=== PATIENT | male | born 1950 | race African-American/Black ===

== ENCOUNTER 2021-06-11 18:30 | Observation (INO) | payer MEDICARE, OTHER ==
[2021-06-11] MEDS ORDERED: MORPHINE SULFATE 2 MG/ML SYRINGE IVP STA (19:37)
--- NOTE | 2021-06-11 19:40 | ED ---
GI Bleed HPI - General Chief complaint: GI Bleed Stated complaint: GI bleed Time Seen by Provider: 06/11/21 18:56 Source: EMS, old records reviewed Mode of arrival: EMS Limitations: no limitations, altered mental status - History of Present Illness Initial comments: 71 year-old male patient with history of CVA with aphasia presents to the emergency department for evaluation after having black stool. Patient is currently residing at [facility]. He has had 2-3 bowel movements containing black tarry stool over the last 3 hours. Patient is extremely aphasic but does provide some yes and no answers. Denies having any dizziness, abdominal pain, chest pain , or shortness of breath. He does currently take adult aspirin, according to the medical record sent with him he does not take any other blood thinning medications. Daughter is present states that he has had 3 falls over the last couple of days. He is reporting frontal headache. - Related Data Allergies Allergy/AdvReac Type Severity Reaction Status Date / Time No Known Allergies Allergy Verified 06/11/21 18:53 Review of Systems ROS Statement: Those systems with pertinent positive or pertinent negative responses have been documented in the HPI. ROS Other: All systems not noted in ROS Statement are negative. Past Medical History Past Medical History: Cancer, COPD, CVA/TIA, Hypertension Additional Past Medical History / Comment(s): anemia, UTI, metabolic encephalopathy, ETOH abuse, Acute Kidney failure, prostate CA, sepsis, seizure from ETOH withdrawal, left side weakness and dysphagia from stroke, History of Any Multi-Drug Resistant Organisms: None Reported Past Surgical History: Prostate Surgery Additional Past Surgical History / Comment(s): prostate biopsy,vocal cord polyp removal, HD catheter with removal Past Psychological History: Depression Smoking Status: Former smoker Past Alcohol Use History: Abuse Past Drug Use History: Marijuana General Exam Limitations: no limitations, altered mental status General appearance: alert, in no apparent distress, other (This well-developed, well-nourished adult male patient in no acute distress. Vital signs upon presentation are temperature 98.3F 4 pulse 97, respirations 16, blood pressure 103/82, pulse ox 97% on room air.) Eye exam: Present: normal appearance, PERRL, EOMI. Absent: scleral icterus, conjunctival injection, nystagmus, periorbital swelling ENT exam: Present: normal exam, normal oropharynx, mucous membranes moist Respiratory exam: Present: normal lung sounds bilaterally. Absent: respiratory distress, wheezes, rales, rhonchi, stridor Cardiovascular Exam: Present: regular rate, normal rhythm, normal heart sounds. Absent: systolic murmur, diastolic murmur, rubs, gallop, clicks GI/Abdominal exam: Present: soft, normal bowel sounds. Absent: distended, tenderness, guarding, rebound, rigid Neurological exam: Present: alert, oriented X3, CN II-XII intact Psychiatric exam: Present: normal affect, normal mood Skin exam: Present: warm, dry, intact, normal color. Absent: rash Course Vital Signs 06/11/21 18:42 Temperature 98.3 F Pulse Rate 97 Respiratory 16 Rate Blood Pressure 103/82 O2 Sat by Pulse 97 Oximetry Medical Decision Making - Medical Decision Making 71 year-old male patient presents for evaluation of 3 episodes of black stool today. BP is stable. Labs reviewed Hgb 10.9. BUN 55, Cr 1.60. Stool occult is positive. Does take aspirin daily. He will be admitted for serial hgb and for evaluation by GI. Protonix given. Patient and family agreeable with this plan. My attending is Dr. Portillo. - Lab Data Result diagrams: 06/11/21 19:04 06/11/21 19:04 Lab Results 06/11/21 06/11/21 06/11/21 Range/Units 19:04 19:04 19:04 WBC 8.2 (3.8-10.6) k/uL RBC 3.63 L (4.30-5.90) m/uL Hgb 10.9 L (13.0-17.5) gm/dL Hct 33.9 L (39.0-53.0) % MCV 93.2 (80.0-100.0) fL MCH 30.0 (25.0-35.0) pg MCHC 32.2 (31.0-37.0) g/dL RDW 14.8 (11.5-15.5) % Plt Count 241 (150-450) k/uL MPV 8.1 Neutrophils % 80 % Lymphocytes % 12 % Monocytes % 5 % Eosinophils % 1 % Basophils % 0 % Neutrophils # 6.6 (1.3-7.7) k/uL Lymphocytes # 1.0 (1.0-4.8) k/uL Monocytes # 0.4 (0-1.0) k/uL Eosinophils # 0.1 (0-0.7) k/uL Basophils # 0.0 (0-0.2) k/uL Hypochromasia Slight APTT 23.1 (22.0-30.0) sec Sodium 138 (137-145) mmol/L Potassium 5.4 H (3.5-5.1) mmol/L Chloride 105 (98-107) mmol/L Carbon Dioxide 22 (22-30) mmol/L Anion Gap 11 mmol/L BUN 55 H (9-20) mg/dL Creatinine 1.60 H (0.66-1.25) mg/dL Est GFR (CKD-EPI)AfAm 50 (>60 ml/min/1.73 sqM) Est GFR (CKD-EPI)NonAf 44 (>60 ml/min/1.73 sqM) Glucose 113 H (74-99) mg/dL Plasma Lactic Acid Reyes (0.7-2.0) mmol/L Calcium 9.9 (8.4-10.2) mg/dL Total Bilirubin 0.3 (0.2-1.3) mg/dL AST 28 (17-59) U/L ALT 25 (4-49) U/L Alkaline Phosphatase 90 (38-126) U/L Troponin I (0.000-0.034) ng/mL Total Protein 7.3 (6.3-8.2) g/dL Albumin 3.7 (3.5-5.0) g/dL Stool Occult Blood (Negative) 06/11/21 06/11/21 06/11/21 Range/Units 19:04 19:05 19:05 WBC (3.8-10.6) k/uL RBC (4.30-5.90) m/uL Hgb (13.0-17.5) gm/dL Hct (39.0-53.0) % MCV (80.0-100.0) fL MCH (25.0-35.0) pg MCHC (31.0-37.0) g/dL RDW (11.5-15.5) % Plt Count (150-450) k/uL MPV Neutrophils % % Lymphocytes % % Monocytes % % Eosinophils % % Basophils % % Neutrophils # (1.3-7.7) k/uL Lymphocytes # (1.0-4.8) k/uL Monocytes # (0-1.0) k/uL Eosinophils # (0-0.7) k/uL Basophils # (0-0.2) k/uL Hypochromasia APTT (22.0-30.0) sec Sodium (137-145) mmol/L Potassium (3.5-5.1) mmol/L Chloride (98-107) mmol/L Carbon Dioxide (22-30) mmol/L Anion Gap mmol/L BUN (9-20) mg/dL Creatinine (0.66-1.25) mg/dL Est GFR (CKD-EPI)AfAm (>60 ml/min/1.73 sqM) Est GFR (CKD-EPI)NonAf (>60 ml/min/1.73 sqM) Glucose (74-99) mg/dL Plasma Lactic Acid Reyes 1.3 (0.7-2.0) mmol/L Calcium (8.4-10.2) mg/dL Total Bilirubin (0.2-1.3) mg/dL AST (17-59) U/L ALT (4-49) U/L Alkaline Phosphatase (38-126) U/L Troponin I <0.012 (0.000-0.034) ng/mL Total Protein (6.3-8.2) g/dL Albumin (3.5-5.0) g/dL Stool Occult Blood Positive (Negative) - EKG Data -: EKG Interpreted by Or EKG Comments: EKG obtained at 1840 shows sinus rhythm with marked sinus arrhythmia, ventricular rate 94, WY interval 138, QR protestant 78, QT 338, QTC 422. No evidence of ST elevation or depression - Radiology Data Radiology results: report reviewed, image reviewed CT brain and C-spine without contrast is obtained. Report is reviewed in its entirety. Impression by Dr. Resendiz shows cerebral atrophy. No acute intracranial abnormality. Spondylotic changes in the cervical spine. No frac ture. Disposition Clinical Impression: Upper GI bleed Disposition: ADMITTED IP TO THIS [facility] Condition: Serious Referrals: Edgar Hansen DO [Primary Care Provider] - 1-2 days Decision to Admit Reason: Admit from EC Decision Date: 06/11/21 Decision Time: 21:18
[2021-06-11 19:49] LABS: Basophils % (A) 0 %; Eosinophils # (A) 0.1 k/uL (0-0.7); Eosinophils % (A) 1 %; HCT 33.9 % (39.0-53.0); HGB 10.9 gm/dL (13.0-17.5); Hypochromasia Slight; Lymphocytes % (A) 12 %; MCHC 32.2 g/dL (31.0-37.0); MCV 93.2 fL (80.0-100.0); Mean Platelet Volume 8.1; Monocytes # (A) 0.4 k/uL (0-1.0); Monocytes % (A) 5 %; Neutrophils # (A) 6.6 k/uL (1.3-7.7); Neutrophils % (A) 80 %; Platelet Count 241 k/uL (150-450); RBC 3.63 m/uL (4.30-5.90); RDW 14.8 % (11.5-15.5); WBC 8.2 k/uL (3.8-10.6)
[2021-06-11 19:58] LABS: Albumin 3.7 g/dL (3.5-5.0); Calcium 9.9 mg/dL (8.4-10.2); Potassium 5.4 mmol/L (3.5-5.1); Total Bilirubin 0.3 mg/dL (0.2-1.3); Total Protein 7.3 g/dL (6.3-8.2)
--- NOTE | 2021-06-11 20:10 | CT ---
EXAMINATION TYPE: CT brain wilmer wo con DATE OF EXAM: 06/11/2021 COMPARISON: None HISTORY: ams CT DLP: 1325.1 mGycm Automated exposure control for dose reduction was used. There is cerebral cortical atrophy. There is no mass effect nor midline shift. There is no sign of in tracranial hemorrhage. Calvarium is intact. Skull base is intact. Cervical vertebra have normal alignment. There is degenerative disc space narrowing throughout the ce rvical spine from C3 to T1. There is spurring of the endplates. Prevertebral soft tissues are intact. Facet joints are intact. There is some osteosclerosis in the cervical vertebra. This could relate to renal failure. IMPRESSION: Cerebral atrophy. No acute intracranial abnormality. Spondylotic changes in the cervical spine. No fracture.
[2021-06-11] MEDS ORDERED: MORPHINE SULFATE 2 MG/ML SYRINGE IV PRN (21:11)
[2021-06-11] MEDS ORDERED: NALOXONE 0.4 MG/ML 1 ML VIAL IV PRN (21:11)
[2021-06-11] MEDS ORDERED: PANTOPRAZOLE 40 MG/10 ML VIAL IVP STA (21:12)
[2021-06-12 00:09] LABS: Basophils % (A) 0 %; Eosinophils # (A) 0.1 k/uL (0-0.7); Eosinophils % (A) 1 %; HCT 30.6 % (39.0-53.0); Lymphocytes # (A) 1.5 k/uL (1.0-4.8); Lymphocytes % (A) 16 %; MCH 30.4 pg (25.0-35.0); MCHC 32.8 g/dL (31.0-37.0); MCV 92.6 fL (80.0-100.0); Mean Platelet Volume 7.8; Monocytes # (A) 0.4 k/uL (0-1.0); Monocytes % (A) 4 %; Neutrophils % (A) 77 %; Platelet Count 288 k/uL (150-450); RDW 15.2 % (11.5-15.5); WBC 9.1 k/uL (3.8-10.6)
[2021-06-12 03:09] LABS: Basophils % (A) 1 %; Eosinophils # (A) 0.1 k/uL (0-0.7); Eosinophils % (A) 1 %; HCT 29.7 % (39.0-53.0); HGB 9.8 gm/dL (13.0-17.5); Lymphocytes # (A) 1.5 k/uL (1.0-4.8); Lymphocytes % (A) 19 %; MCH 30.4 pg (25.0-35.0); Mean Platelet Volume 7.4; Monocytes # (A) 0.5 k/uL (0-1.0); Monocytes % (A) 7 %; Neutrophils # (A) 5.4 k/uL (1.3-7.7); Neutrophils % (A) 70 %; Platelet Count 247 k/uL (150-450); RBC 3.23 m/uL (4.30-5.90); RDW 15.3 % (11.5-15.5); WBC 7.6 k/uL (3.8-10.6)
[2021-06-12 07:52] LABS: Basophils # (A) 0.1 k/uL (0-0.2); Basophils % (A) 1 %; Eosinophils # (A) 0.2 k/uL (0-0.7); Eosinophils % (A) 2 %; HGB 9.7 gm/dL (13.0-17.5); Lymphocytes # (A) 1.6 k/uL (1.0-4.8); Lymphocytes % (A) 23 %; MCH 29.9 pg (25.0-35.0); MCHC 32.4 g/dL (31.0-37.0); MCV 92.2 fL (80.0-100.0); Mean Platelet Volume 7.9; Monocytes # (A) 0.5 k/uL (0-1.0); Monocytes % (A) 7 %; Neutrophils # (A) 4.6 k/uL (1.3-7.7); Neutrophils % (A) 65 %; Platelet Count 243 k/uL (150-450); RBC 3.26 m/uL (4.30-5.90); RDW 14.8 % (11.5-15.5); WBC 7.1 k/uL (3.8-10.6)
[2021-06-12] MEDS ORDERED: PANTOPRAZOLE 40 MG/10 ML VIAL IVP SCH (09:00)
[2021-06-12] MEDS ORDERED: ACETAMINOPHEN TAB 325 MG TAB PO PRN (10:41)
[2021-06-12 12:37] LABS: Basophils % (A) 1 %; Eosinophils # (A) 0.2 k/uL (0-0.7); Eosinophils % (A) 2 %; HCT 30.7 % (39.0-53.0); HGB 9.9 gm/dL (13.0-17.5); Lymphocytes # (A) 1.5 k/uL (1.0-4.8); Lymphocytes % (A) 22 %; MCH 30.6 pg (25.0-35.0); MCHC 32.4 g/dL (31.0-37.0); MCV 94.3 fL (80.0-100.0); Mean Platelet Volume 8.1; Monocytes # (A) 0.5 k/uL (0-1.0); Monocytes % (A) 7 %; Neutrophils # (A) 4.6 k/uL (1.3-7.7); Neutrophils % (A) 66 %; Platelet Count 270 k/uL (150-450); RBC 3.25 m/uL (4.30-5.90); RDW 15.6 % (11.5-15.5)
[2021-06-12 13:53] VITALS: BMI 16.7
[2021-06-12] MEDS ORDERED: PROPOFOL 10 MG/ML 20 ML VIAL IV ONE (14:37)
[2021-06-12] MEDS ORDERED: LIDOCAINE 1% INJ 10MG/ML (20 ML MDV) ONE (14:37)
[2021-06-12] MEDS ORDERED: SODIUM CHLORIDE 0.9% 500 ML 500 ML IV ONE ×2 (14:40)
--- NOTE | 2021-06-12 14:50 | P.PCN ---
Date of Procedure: 06/12/21 Procedure(s) Performed: BRIEF HISTORY: Patient is a 71-year-old, pleasant, -[place] male admitted hospital with recurrent episodes. Hemoglobin dropped from 10-9 g/dL. He scheduled for an upper endoscopy to evaluate further. Issue with history of CVA with expressive aphasia . PROCEDURE PERFORMED: Esophagogastroduodenoscopy with biopsy . PREOPERATIVE DIAGNOSIS: Melena of 1 day duration. IV sedation per anesthesia. PROCEDURE: After informed consent was obtained, the patient was brought into the endoscopy unit. IV sedation was administered by Anesthesia under continuous monitoring. Initially the Olympus GIF-140 video endoscope was inserted into the mouth. Esophagus intubated without any difficulty. It was gradually advanced into the stomach and duodenum and carefully examined. The bulb and the second part of the duodenum appeared normal. there was a 1 cm clean-based pyloric channel ulcer with no active bleeding. Biopsies were done from the margin of the ulcer. The scope at this airam withdrawn to the stomach, adequately insufflated with air, and upon careful examination, mucosa of the antrum, body, had mild diffuse gastritis. The cardia and the fundus appeared normal. The scope was then withdrawn into the esophagus. The GE junction was located at 39 cm from the incisors. The esophagus appeared normal. There were no erosions or ulcerations seen and the patient tolerated the procedure well. IMPRESSION: 1. 1 cm clean-based pyloric channel ulcer status post biopsy. No evidence of active bleeding 2. Mild diffuse gastritis in the distal body and antrum of the stomach. RECOMMENDATIONS: The findings of this examination were discussed with the patientas well as his family. Await biopsy results. Continue Protonix 40 mg daily. Advance diet as tolerated.
[2021-06-12] MEDS: amLODIPine 5 MG TAB PO SCH (15:26)
[2021-06-12] MEDS: FOLIC ACID 1 MG TAB PO SCH (15:26)
[2021-06-12] MEDS: TAMSULOSIN 0.4 MG CAP.ER.24H PO SCH (15:26)
[2021-06-12] MEDS: SODIUM CHLORIDE 0.9% 1,000 ML IV SCH ×2 (15:29→23:59)
[2021-06-12] MEDS: NYSTATIN 100,000 UNIT/ML SUSP 500,000 UNIT/5 ML CUP PO SCH ×3 (15:30→22:02)
--- NOTE | 2021-06-12 16:27 | P.HPIM ---
History of Present Illness H&P Date: 06/12/21 Chief Complaint: Dark stools History of presenting complaint: This is a 71-year-old patient was a resident of [facility], presenting for black stools. Before of Dr. Hansen. Liver span of last few hours he had 2 or 3 bowel movements at the [facility]. Patient is aphasic. But able to follow commands. Patient appears to be bed bound. Is on aspirin. Denies any abdominal pain. Difficult up in any of the history. GI was consulted. Review of systems cannot be obtained because patient is aphasic Past medical history to include: COPD, stroke, hypertension, history of alcohol abuse, prostate cancer, some left-sided weakness, dysphagia and dysarthria from stroke Social history: Previous smoker. Currently at resident of [facility]. Apparently non- ambulatory Family history: Patient cannot tell Physical examination: VITAL SIGNS: 98.2, 100, 16, 98/65, 100% room air GENERAL: BMI 16.7, reclining in bed, tired. EYES: Pupils equal. Conjunctiva palel. HEENT: External appearance of nose and ears normal, oral cavity grossly normal. NECK: JVD not raised; masses not palpable. HEART: First and second heart sounds are normal; no edema. LUNGS: Respiratory rate normal; decreased breath sounds. ABDOMEN: Soft, nontender, liver spleen not palpable, no masses palpable. PSYCH: Unable to assess because of aphasial. NEUROLOGICAL: Cranial nerves grossly intact; no facial asymmetry, power and sensation grossly intact. LYMPHATICS: No lymph nodes palpable in the axilla and neck INVESTIGATIONS, reviewed in the clinical context: White count 8.2 hemoglobin 10.9 platelets 241 potassium 5.4 BUN 55 creatinine 1.60 EKG tracing personally reviewed by sc-normal sinus rhythm, rate 94 Computed tomography scan of the brain: Celebrex atrophy Assessment and plan: -Acute GI bleed, patient presented with dark stools. Does take aspirin. GI consult with a view to endoscopy -Normocytic anemia from acute GI bleed. Follow H&H -Chronic aphasia from prior stroke -COPD in a previous smoker -Essential hypertension Norvasc 5 mg daily -BPH Flomax 0.4 mg daily -Hyperkalemia in the setting of renal failure Repeat labs -Renal failure. Acute versus chronic. IV fluids. Repeat labs in the morning. Renal ultrasound. There is no family member present. EGD pending. PPI. Renal ultrasound. IV fluids. Repeat labs in the morning. Hold aspirin Aspirin was discontinued. Put on PPI. GI consulted with a view to endoscopy. Past Medical History Past Medical History: Cancer, COPD, CVA/TIA, Hypertension Additional Past Medical History / Comment(s): anemia, UTI, metabolic encephalopathy, ETOH abuse, Acute Kidney failure, prostate CA, sepsis, seizure from ETOH withdrawal, left side weakness and dysphagia from stroke, History of Any Multi-Drug Resistant Organisms: None Reported Past Surgical History: Prostate Surgery Additional Past Surgical History / Comment(s): prostate biopsy,vocal cord polyp removal, HD catheter with removal Past Psychological History: Depression Smoking Status: Former smoker Past Alcohol Use History: Abuse Past Drug Use History: Marijuana Medications and Allergies Home Medications Medication Instructions Recorded Confirmed Type Acetaminophen Tab [Tylenol] 650 mg PO Q4H PRN 06/11/21 06/11/21 History Aspirin EC [Ecotrin] 325 mg PO DAILY 06/11/21 06/11/21 History Atorvastatin [Lipitor] 40 mg PO HS 06/11/21 06/11/21 History Ferrous Sulfate [Feosol] 325 mg PO DAILY 06/11/21 06/11/21 History Folic Acid 1 mg PO DAILY 06/11/21 06/11/21 History Levofloxacin [Levaquin] 500 mg PO HS@2000 06/11/21 06/11/21 History Nystatin 100,000 Unit/ml Susp 500,000 unit PO QID 06/11/21 06/11/21 History [Mycostatin Oral Susp] Tamsulosin [Flomax] 0.4 mg PO DAILY 06/11/21 06/11/21 History amLODIPine [Norvasc] 5 mg PO DAILY 06/11/21 06/11/21 History Allergies Allergy/AdvReac Type Severity Reaction Status Date / Time No Known Allergies Allergy Verified 06/11/21 22:34 Physical Exam Vitals: Vital Signs Temp Pulse Pulse Resp BP BP Pulse Ox 06/12/21 05:00 96.9 F L 95 16 98/65 100 06/11/21 23:05 98.2 F 100 16 94/63 100 06/11/21 22:20 96 18 106/95 97 06/11/21 18:42 98.3 F 97 16 103/82 97 Intake and Output 06/11/21 06/12/21 06/12/21 22:59 06:59 14:59 Intake Total 150 Output Total 75 Balance 150 -75 Intake: Oral 150 Output: Urine 75 Other: # Voids 1 Weight 54.431 kg Results CBC & Chem 7: 06/12/21 11:03 06/11/21 19:04 Labs: Abnormal Lab Results - Last 24 Hours (Table) 06/11/21 06/11/21 06/11/21 Range/Units 19:04 19:04 23:28 RBC 3.63 L 3.30 L (4.30-5.90) m/uL Hgb 10.9 L 10.0 L (13.0-17.5) gm/dL Hct 33.9 L 30.6 L (39.0-53.0) % Potassium 5.4 H (3.5-5.1) mmol/L BUN 55 H (9-20) mg/dL Creatinine 1.60 H (0.66-1.25) mg/dL Glucose 113 H (74-99) mg/dL 06/12/21 06/12/21 Range/Units 02:17 07:15 RBC 3.23 L 3.26 L (4.30-5.90) m/uL Hgb 9.8 L 9.7 L (13.0-17.5) gm/dL Hct 29.7 L 30.0 L (39.0-53.0) % Potassium (3.5-5.1) mmol/L BUN (9-20) mg/dL Creatinine (0.66-1.25) mg/dL Glucose (74-99) mg/dL
[2021-06-12] MEDS: PANTOPRAZOLE 40 MG TABLET PO SCH (17:53)
--- NOTE | 2021-06-12 20:05 | CONS ---
CONSULTATION DATE OF DICTATION: 06/12/2021 REASON FOR CONSULTATION: GI bleed. HISTORY OF PRESENT ILLNESS: The patient is a 71-year-old -[place] male with a history of CVA and aphasia who is presently a resident of a group home and was transferred after having an episode of black tarry stools. He currently resides at [facility]. Since being in the hospital he has not had any further episodes of bleeding. Patient is extremely aphasic, and most of the history was obtained from the patient's chart. He, however, nods his head to answer questions and he denies any abdominal pain. No nausea, no vomiting. In the ER, he was noted to have a hemoglobin of 10.9 g/dL and elevated BUN at 55. PAST MEDICAL HISTORY: His past medical history is significant for CVA with aphasia, hypertension, hyperlipidemia, COPD, anemia, history of prostate cancer, seizure disorder, and left- sided weakness. PAST SURGICAL HISTORY: Prostate surgery. MEDICATIONS: Medications at home include nystatin, Tylenol, Levaquin, folic acid, Flomax, Feosol, Lipitor, Ecotrin and . ALLERGIES: NONE. SOCIAL HISTORY: No smoking. No alcohol use. REVIEW OF SYSTEMS: Review of systems could not be obtained, as patient is aphasic. FAMILY HISTORY: Unremarkable. PHYSICAL EXAMINATION: He appears comfortable. No apparent distress. VITAL SIGNS: Stable. Blood pressure 95/65, pulse rate 85, temperature . HEENT EXAMINATION: Unremarkable. Conjunctivae pink. Sclerae anicteric. Oral cavity no lesions. NECK: No JVD or lymph node enlargement. CHEST: Clear to auscultation. HEART: Regular rate and rhythm. ABDOMEN: Soft. Mild tenderness in the epigastric area. Bowel sounds are positive. No organomegaly. EXTREMITIES: No pedal edema. SKIN: No rashes. NEURO: He is alert and oriented x3. No focal deficits. LABS: Labs at the time of admission to the hospital were WBC 8.2, hemoglobin 10.9, platelets normal. BUN 55, creatinine 1.6. Today hemoglobin is 10.9 g/dL. Stool Hemoccult is positive. IMPRESSION: 1. Black tarry stools x1 yesterday. Hemoglobin stable at 10.9 g/dL. This morning it is down to 9.9. The patient had no further episodes of black tarry stools since being in the hospital. Rule out upper GI source of bleeding. 2. Elevated BUN and creatinine; possible chronic kidney disease. 3. History of cerebrovascular accident in the past with left-sided weakness and aphasia. 4. History of hypertension. RECOMMENDATIONS: 1. Continue with Protonix 40 mg daily. 2. Monitor CBC daily. 3. Will proceed with upper endoscopy today. Further recommendations will follow. Thank you for this consultation. MMODL / IJN: [id number] /
[2021-06-12] MEDS ORDERED: ATORVASTATIN 40 MG TAB PO SCH (21:00)
--- NOTE | 2021-06-13 01:38 | US ---
EXAMINATION TYPE: US kidneys/renal and bladder DATE OF EXAM: 06/12/2021 COMPARISON: NONE CLINICAL HISTORY: assess for CKD. EXAM MEASUREMENTS: Right Kidney: 10.8 x 4.0 x 4.0 cm Left Kidney: 9.7 x 4.7 x 4.3 cm Right Kidney: Mild hydronephrosis. Cystic area visualized measuring 1.1 cm Left Kidney: No hydronephrosis. Cyst measuring 2.3 x 1.8 x 1.9 cm Bladder: Not visualized IMPRESSION: There are bilateral simple renal cortical cysts. Right renal hydronephrosis. No evidence of a solid r enal mass. Urinary bladder not evaluated. Bladder not visualized.
[2021-06-13 06:41] LABS: African American GFR (CKD) 56 (>60 ml/min/1.73 sqM); Anion Gap 7 mmol/L; Blood Urea Nitrogen 41 mg/dL (9-20); Calcium 9.4 mg/dL (8.4-10.2); Carbon Dioxide 25 mmol/L (22-30); Chloride 108 mmol/L (98-107); Glucose 98 mg/dL (74-99); Non-African American GFR(CKD) 49 (>60 ml/min/1.73 sqM); Potassium 4.2 mmol/L (3.5-5.1); Sodium 140 mmol/L (137-145)
[2021-06-13] MEDS: SODIUM CHLORIDE 0.9% 1,000 ML IV SCH ×3 (07:21→17:57)
[2021-06-13] MEDS: amLODIPine 5 MG TAB PO SCH (08:28)
[2021-06-13] MEDS: FOLIC ACID 1 MG TAB PO SCH (08:28)
[2021-06-13] MEDS: NYSTATIN 100,000 UNIT/ML SUSP 500,000 UNIT/5 ML CUP PO SCH ×3 (08:28→17:57)
[2021-06-13] MEDS: PANTOPRAZOLE 40 MG TABLET PO SCH ×2 (08:28→17:57)
[2021-06-13] MEDS: TAMSULOSIN 0.4 MG CAP.ER.24H PO SCH (08:28)
[2021-06-13 10:59] LABS: HCT 28.1 % (39.0-53.0); HGB 9.3 gm/dL (13.0-17.5); Hypochromasia Slight; MCHC 33.1 g/dL (31.0-37.0); MCV 93.8 fL (80.0-100.0); Mean Platelet Volume 8.5; Platelet Count 222 k/uL (150-450); RDW 14.5 % (11.5-15.5); WBC 5.7 k/uL (3.8-10.6)
[2021-06-13 11:58] VITALS: BP 115/73; PULSE 71; RESP 17; TEMP 97.8
--- NOTE | 2021-06-13 12:13 | P.PN ---
Subjective Progress Note Date: 06/13/21 Principal diagnosis: Melena, GI bleed 71-year-old -[place] male with a history of CVA and aphasia who presently is a resident at [facility] was transferred after having an episode of black tarry stools. Yesterday he underwent an upper endoscopy that revealed a 1 cm clean based pyloric channel ulcer status post biopsy. No evidence of active bleeding. Mild diffuse gastritis in the distal body and antrum of the stomach. Patient is to continue Protonix 40 mg daily. The patient had no further bleeding since he has been hospitalized. He denies any nausea, vomiting, or abdominal pain. Hemoglobin is stable at 9.3. Objective - Vital Signs Vital signs: Vital Signs Temp 97.3 F L 06/13/21 05:00 Pulse 69 06/13/21 08:31 Resp 16 06/13/21 05:00 BP 111/71 06/13/21 08:31 Pulse Ox 100 06/13/21 05:00 Intake & Output 06/12/21 06/13/21 06/13/21 18:59 06:59 18:59 Intake Total 100 1560 Output Total 375 200 Balance -275 1360 Weight 54.431 kg Intake: IV 100 Intake, IV Titration 1560 Amount Sodium Chloride 0.9% 1, 1560 000 ml @ 130 mls/hr IV . Q7H42M [facility] Rx#:[id number] Output: Urine 375 200 Other: Voiding Method Urinal - Exam General appearance: The patient is alert, oriented, appears in no acute distress. HET: Head is normocephalic and atraumatic. Conjunctiva pink. Sclera anicteric. Poor dentation. Neck: Supple without lymphadenopathy. Abdomen: Soft, nontender, nondistended with bowel sounds. No guarding or rigidity. Extremities: Normal skin color and turgor. No pedal edema Skin: No rashes, no jaundice Neurological: Aphasia. Alert and oriented 3. - Labs CBC & Chem 7: 06/13/21 05:48 06/13/21 05:48 Labs: Abnormal Lab Results - Last 24 Hours (Table) 06/12/21 06/13/21 Range/Units 11:03 05:48 RBC 3.25 L (4.30-5.90) m/uL Hgb 9.9 L (13.0-17.5) gm/dL Hct 30.7 L (39.0-53.0) % RDW 15.6 H (11.5-15.5) % Chloride 108 H (98-107) mmol/L BUN 41 H (9-20) mg/dL Creatinine 1.45 H (0.66-1.25) mg/dL Assessment and Plan (1) Melena Narrative/Plan: 71-year-old male who was sent to the emergency department for further evaluation for reported black tarry stool. Patient is a resident of [facility] and was sent in with reported black stool. On admission he had a hemoglobin of 10.9. He's had no further episodes of black stool since being hospitalized. Yesterday he underwent an EGD that showed a 1 cm clean based pyloric channel ulcer status post biopsy. No evidence of active bleeding. Mild diffuse gastritis in the distal body and antrum of the stomach. He is to continue Protonix 40 mg daily. He is to call the office to follow-up with biopsy results. Current Visit: Yes Status: Acute Code(s): K92.1 - MELENA SNOMED Code(s): 7956951 Plan: 1. Continue symptomatic and supportive care 2. Patient is status post EGD 3. Continue Protonix 40 mg daily 4. Patient is cleared by gastroenterology for discharge. Patient and his family were instructed to call the office for biopsy results. Thank you for allowing us to participate in the care of the patient, the GI service will sign off, gastroenterology will not be available at the hospital this weekend and if further evaluation by gastroenterology is required the patient will need transfer as per the primary team's discretion. Dr. Rito Bates I agree with the dictator's note, documented as a scribe by Gaviota Willis.
--- NOTE | 2021-06-13 14:07 | P.DS ---
Providers Date of admission: 06/11/21 21:45 Expected date of discharge: 06/13/21 Attending physician: Elia Ng Consults: 06/11/21 21:11 Consult Physician Routine Consulting Provider: Елена Bates Consult Reason/Comments: Melena Do you want consulting provider notified?: Yes Primary care physician: [facility] Course: Chief Complaint: Dark stools History of presenting complaint: This is a 71-year-old patient was a resident of [facility], presenting for black stools. Followed by Dr. Hansen. Liver span of last few hours he had 2 or 3 bowel movements at the [facility]. Patient is aphasic. But able to follow commands. Patient appears to be bed bound. Is on aspirin. Denies any abdominal pain. Difficult up in any of the history. GI was consulted. June 13: EGD yesterday showed 1 cm clean-based pyloric channel ulcer. Biopsy done. No active bleeding noted. Mild diffuse gastritis. Continue PPI. Cleared by GI for discharge. Patient will resume aspirin 81 mg after 5 days. Consultation: Dr. Rito Bates from GI Past medical history to include: COPD, stroke, hypertension, history of alcohol abuse, prostate cancer, some l eft-sided weakness, dysphagia and dysarthria from stroke Social history: Previous smoker. Currently at resident of [facility]. Apparently non- ambulatory Family history: Patient cannot tell Physical examination: VITAL SIGNS: 97.8, 71, 17, 150/73, 98% room air GENERAL: BMI 16.7, reclining in bed, tired. EYES: Pupils equal. Conjunctiva pale. HEENT: External appearance of nose and ears normal, oral cavity grossly normal. NECK: JVD not raised; masses not palpable. HEART: First and second heart sounds are normal; no edema. LUNGS: Respiratory rate normal; decreased breath sounds. ABDOMEN: Soft, nontender, liver spleen not palpable, no masses palpable. PSYCH: Unable to assess because of aphasial NEURO: Follows commands INVESTIGATIONS, reviewed in the clinical context: June 13: Hemoglobin 9.3 creatinine 1.45 : Bilateral Simple Renal Cortical Cysts. White count 8.2 hemoglobin 10.9 platelets 241 potassium 5.4 BUN 55 creatinine 1.60 EKG tracing personally reviewed by me-normal sinus rhythm, rate 94 Computed tomography scan of the brain: Celebrex atrophy Assessment and plan: -Acute GI bleed, from gastric ulcer, secondary to aspirin Placed on PPI. -Normocytic anemia from acute GI bleed. Follow H&H -Chronic aphasia from prior stroke -COPD in a previous smoker -Essential hypertension Norvasc 5 mg daily -BPH Flomax 0.4 mg daily -Hyperkalemia in the setting of renal failure: Corrected Repeat labs -Possible CK D, stage III likely nephrosclerosis Follow outpatient. Disposition: [facility] Labs: CBC, BMP 5 days Plan - Discharge Summary Discharge Rx Participant: No New Discharge Prescriptions: New Aspirin 81 mg PO DAILY #1 tab Pantoprazole [Protonix] 40 mg PO AC-BID tablet. Continue Acetaminophen Tab [Tylenol] 650 mg PO Q4H PRN PRN Reason: Fever And/ Or Pain Folic Acid 1 mg PO DAILY Tamsulosin [Flomax] 0.4 mg PO DAILY Atorvastatin [Lipitor] 40 mg PO HS amLODIPine [Norvasc] 5 mg PO DAILY Nystatin 100,000 Unit/ml Susp [Mycostatin Oral Susp] 500,000 unit PO QID Ferrous Sulfate [Iron (65 MG Elemental)] 325 mg PO DAILY Discontinued Aspirin EC [Ecotrin] 325 mg PO DAILY Levofloxacin [Levaquin] 500 mg PO HS@2000 Discharge Medication List Acetaminophen Tab [Tylenol] 650 mg PO Q4H PRN 06/11/21 [History] Atorvastatin [Lipitor] 40 mg PO HS 06/11/21 [History] Ferrous Sulfate [Iron (65 MG Elemental)] 325 mg PO DAILY 06/11/21 [History] Folic Acid 1 mg PO DAILY 06/11/21 [History] Nystatin 100,000 Unit/ml Susp [Mycostatin Oral Susp] 500,000 unit PO QID 06/11/21 [History] Tamsulosin [Flomax] 0.4 mg PO DAILY 06/11/21 [History] amLODIPine [Norvasc] 5 mg PO DAILY 06/11/21 [History] Aspirin 81 mg PO DAILY #1 tab 06/13/21 [Rx] Pantoprazole [Protonix] 40 mg PO AC-BID tablet. 06/13/21 [Rx] Follow up Appointment(s)/Referral(s): Edgar Hansen DO [Primary Care Provider] - 1-2 days Елена Bates MD [STAFF PHYSICIAN] - As Needed (Call for biopsy results) Activity/Diet/Wound Care/Special Instructions: start aspirin in 5 days
== END 2021-06-13 19:34 ==
LOC: EC 18:30 → 5NMEDONC 21:45
PROVIDERS: ADMIT Hospitalist; ATTEND Hospitalist
DX: K25.4 Chronic or unspecified gastric ulcer with hemorrhage (principal); D62 Acute posthemorrhagic anemia; K29.51 Unspecified chronic gastritis with bleeding; I69.320 Aphasia following cerebral infarction; I10 Essential (primary) hypertension; E87.5 Hyperkalemia; N17.9 Acute kidney failure, unspecified; I69.354 Hemiplegia and hemiparesis following cerebral infarction affecting left non-dominant side; I69.391 Dysphagia following cerebral infarction; J44.9 Chronic obstructive pulmonary disease, unspecified; M85.88 Other specified disorders of bone density and structure, other site; N40.0 Benign prostatic hyperplasia without lower urinary tract symptoms; E78.5 Hyperlipidemia, unspecified; G40.909 Epilepsy, unspecified, not intractable, without status epilepticus; F10.11 Alcohol abuse, in remission; R51.9 Headache, unspecified; F32.9 Major depressive disorder, single episode, unspecified; Z79.82 Long term (current) use of aspirin; Z79.899 Other long term (current) drug therapy; Z85.46 Personal history of malignant neoplasm of prostate; Z87.891 Personal history of nicotine dependence; Z86.19 Personal history of other infectious and parasitic diseases; Z87.440 Personal history of urinary (tract) infections; Z98.890 Other specified postprocedural states
CPT/HCPCS: 96376; 96374; 96375; 99285; 36415; 93005; 97162; 97535; 97166; 88305; 80053; 80048; 83605; 84484; 85025 ×2; 85027; 85730; 82272; 76770; 72125; 70450; 43239; G0378 ×3; J2001; J2270; J2704; C9113 ×2

== ENCOUNTER → 2021-06-24 | Outpatient (CLI) | payer MEDICARE, OTHER ==
--- NOTE | 2021-06-24 11:57 | FL ---
Modified barium swallow. HISTORY: Dysphagia. Modified barium swallow was performed with the department of speech pathology. The patient was prese nted with various consistencies of barium. There is severe oral dysphagia noted with markedly delayed oropharyngeal phase. There is no evidence for aspiration or penetration. Full report is to follow from the department of speech pathology. Impression: As above
== END | disposition home or self-care (01) ==
LOC: RADFLMAIN 11:12
PROVIDERS: ATTEND Family Medicine
DX: R13.10 Dysphagia, unspecified (principal)
CPT/HCPCS: 74230

== ENCOUNTER 2021-07-09 14:08 | Observation (INO) | payer MEDICARE, OTHER ==
[2021-07-09] MEDS ORDERED: SODIUM CHLORIDE 0.9% 1,000 ML IV STA (14:17)
--- NOTE | 2021-07-09 14:26 | ED ---
General Adult HPI - General Chief complaint: Syncope Stated complaint: syncope Time Seen by Provider: 07/09/21 14:15 Source: patient, family, EMS, RN notes reviewed, old records reviewed Mode of arrival: EMS Limitations: language barrier - History of Present Illness Initial comments: This is a 71-year-old male who presents emergency Department because he was unresponsive for approximately 30 seconds. Patient is somewhat expressive aphasia from previous stroke he denies any pain he denies any problems breathing he denies any recent nausea vomiting or diarrhea. Patient states he hasn't been eating or drinking well. According to EMS he is pressure was low on the got there but he was able to answer or questions and at his baseline at that time. Patient denies any headache patient denies any new weakness. Patient denies any chest pain palpitations or difficulty breathing or abdominal pain. - Related Data Home Medications Medication Instructions Recorded Confirmed Folic Acid 1 mg PO DAILY 06/11/21 07/09/21 Tamsulosin [Flomax] 0.4 mg PO DAILY 06/11/21 07/09/21 amLODIPine [Norvasc] 5 mg PO DAILY 06/11/21 07/09/21 Health Shake 1 can PO DAILY@1700 07/09/21 07/09/21 MORPHINE ORAL GUALBERTO CONC 20mg/mL 5 mg PO Q4HR PRN 07/09/21 07/09/21 [Roxanol Oral Soln Conc 20MG/ML] Allergies Allergy/AdvReac Type Severity Reaction Status Date / Time No Known Allergies Allergy Verified 07/09/21 17:46 Review of Systems ROS Statement: Those systems with pertinent positive or pertinent negative responses have been documented in the HPI. ROS Other: All systems not noted in ROS Statement are negative. Past Medical History Past Medical History: Cancer, COPD, CVA/TIA, Hypertension Additional Past Medical History / Comment(s): anemia, UTI, metabolic encephalopathy, ETOH abuse, Acute Kidney failure, prostate CA, sepsis, seizure from ETOH withdrawal, left side weakness and dysphagia from stroke, History of Any Multi-Drug Resistant Organisms: None Reported Past Surgical History: Prostate Surgery Additional Past Surgical History / Comment(s): prostate biopsy,vocal cord polyp removal, HD catheter with removal Past Psychological History: Depression Smoking Status: Former smoker Past Alcohol Use History: Abuse Past Drug Use History: Marijuana General Exam - General Exam Comments Initial Comments: GENERAL: Patient is well-developed and well-nourished. Patient is nontoxic and well- hydrated and is in no acute distress. ENT: Neck is soft and supple. No significant lymphadenopathy is noted. Oropharynx is clear. Moist mucous membranes. Neck has full range of motion without eliciting any pain. EYES: The sclera were anicteric and conjunctiva were pink and moist. Extraocular movements were intact and pupils were equal round and reactive to light. Eyelids were unremarkable. PULMONARY: Unlabored respirations. Good breath sounds bilaterally. No audible rales rhonchi or wheezing was noted. CARDIOVASCULAR: There is a regular rate and rhythm without any murmurs gallops or rubs. ABDOMEN: Soft and nontender with normal bowel sounds. SKIN: Skin is clear with no lesions or rashes and otherwise unremarkable. NEUROLOGIC: Patient is alert and oriented 2. Cranial nerves II through XII are grossly intact. Motor and sensory are also intact. Normal speech, volume and content. Symmetrical smile. MUSCULOSKELETAL: Normal extremities with adequate strength and full range of motion. LYMPHATICS: No significant lymphadenopathy is noted PSYCHIATRIC: Normal psychiatric evaluation. Limitations: language barrier Course Vital Signs 07/09/21 07/09/21 07/09/21 14:12 15:37 17:56 Temperature 97.5 F L Pulse Rate 57 L 53 L 53 L Respiratory 16 18 18 Rate Blood Pressure 97/69 116/70 133/78 O2 Sat by Pulse 99 98 98 Oximetry Medical Decision Making - Medical Decision Making EKG shows normal sinus rhythm at 62 bpm MO interval 244 QRS is 84 QT interval 44 QTC is 410 per patient's EKG shows no ST segment elevation or depression. Patient was hypotensive on arrival and I gave the patient liter of fluid and it brought his blood pressure and within normal range. Patient is back to his neurologic baseline and answering all questions appropriately - Lab Data Result diagrams: 07/09/21 14:46 07/09/21 14:46 Lab Results 07/09/21 07/09/21 07/09/21 Range/Units 14:46 14:46 14:46 WBC 4.0 (3.8-10.6) k/uL RBC 3.02 L (4.30-5.90) m/uL Hgb 9.1 L (13.0-17.5) gm/dL Hct 27.6 L (39.0-53.0) % MCV 91.6 (80.0-100.0) fL MCH 30.2 (25.0-35.0) pg MCHC 33.0 (31.0-37.0) g/dL RDW 14.5 (11.5-15.5) % Plt Count 358 (150-450) k/uL MPV 8.1 Neutrophils % 66 % Lymphocytes % 24 % Monocytes % 7 % Eosinophils % 2 % Basophils % 0 % Neutrophils # 2.6 (1.3-7.7) k/uL Lymphocytes # 1.0 (1.0-4.8) k/uL Monocytes # 0.3 (0-1.0) k/uL Eosinophils # 0.1 (0-0.7) k/uL Basophils # 0.0 (0-0.2) k/uL PT 10.8 (9.0-12.0) sec INR 1.0 (<1.2) APTT 22.2 (22.0-30.0) sec Sodium (137-145) mmol/L Potassium (3.5-5.1) mmol/L Chloride (98-107) mmol/L Carbon Dioxide (22-30) mmol/L Anion Gap mmol/L BUN (9-20) mg/dL Creatinine (0.66-1.25) mg/dL Est GFR (CKD-EPI)AfAm (>60 ml/min/1.73 sqM) Est GFR (CKD-EPI)NonAf (>60 ml/min/1.73 sqM) Glucose (74-99) mg/dL Plasma Lactic Acid Reyes (0.7-2.0) mmol/L Calcium (8.4-10.2) mg/dL Magnesium (1.6-2.3) mg/dL Total Bilirubin (0.2-1.3) mg/dL AST (17-59) U/L ALT (4-49) U/L Alkaline Phosphatase (38-126) U/L Troponin I (0.000-0.034) ng/mL Total Protein (6.3-8.2) g/dL Albumin (3.5-5.0) g/dL Urine Color Yellow Urine Appearance Clear (Clear) Urine pH 7.0 (5.0-8.0) Ur Specific [place] 1.012 (1.001-1.035) Urine Protein Negative (Negative) Urine Glucose (UA) Negative (Negative) Urine Ketones Negative (Negative) Urine Blood Negative (Negative) Urine Nitrite Negative (Negative) Urine Bilirubin Negative (Negative) Urine Urobilinogen <2.0 (<2.0) mg/dL Ur Leukocyte Esterase Negative (Negative) 07/09/21 07/09/21 07/09/21 Range/Units 14:46 14:46 14:55 WBC (3.8-10.6) k/uL RBC (4.30-5.90) m/uL Hgb (13.0-17.5) gm/dL Hct (39.0-53.0) % MCV (80.0-100.0) fL MCH (25.0-35.0) pg MCHC (31.0-37.0) g/dL RDW (11.5-15.5) % Plt Count (150-450) k/uL MPV Neutrophils % % Lymphocytes % % Monocytes % % Eosinophils % % Basophils % % Neutrophils # (1.3-7.7) k/uL Lymphocytes # (1.0-4.8) k/uL Monocytes # (0-1.0) k/uL Eosinophils # (0-0.7) k/uL Basophils # (0-0.2) k/uL PT (9.0-12.0) sec INR (<1.2) APTT (22.0-30.0) sec Sodium 135 L (137-145) mmol/L Potassium 5.2 H (3.5-5.1) mmol/L Chloride 102 (98-107) mmol/L Carbon Dioxide 23 (22-30) mmol/L Anion Gap 10 mmol/L BUN 18 (9-20) mg/dL Creatinine 2.16 H (0.66-1.25) mg/dL Est GFR (CKD-EPI)AfAm 35 (>60 ml/min/1.73 sqM) Est GFR (CKD-EPI)NonAf 30 (>60 ml/min/1.73 sqM) Glucose 115 H (74-99) mg/dL Plasma Lactic Acid Reyes 1.4 (0.7-2.0) mmol/L Calcium 9.3 (8.4-10.2) mg/dL Magnesium 1.9 (1.6-2.3) mg/dL Total Bilirubin 0.2 (0.2-1.3) mg/dL AST 20 (17-59) U/L ALT 12 (4-49) U/L Alkaline Phosphatase 91 (38-126) U/L Troponin I <0.012 (0.000-0.034) ng/mL Total Protein 6.9 (6.3-8.2) g/dL Albumin 3.5 (3.5-5.0) g/dL Urine Color Urine Appearance (Clear) Urine pH (5.0-8.0) Ur Specific [place] (1.001-1.035) Urine Protein (Negative) Urine Glucose (UA) (Negative) Urine Ketones (Negative) Urine Blood (Negative) Urine Nitrite (Negative) Urine Bilirubin (Negative) Urine Urobilinogen (<2.0) mg/dL Ur Leukocyte Esterase (Negative) Disposition Clinical Impression: Unresponsive episode, Renal insufficiency, Hypotension Disposition: ADMITTED IP TO THIS HOSP Referrals: Edgar Hansen DO [Primary Care Provider] - 1-2 days Time of Disposition: 18:27
[2021-07-09 15:02] LABS: Basophils % (A) 0 %; Eosinophils # (A) 0.1 k/uL (0-0.7); Eosinophils % (A) 2 %; HCT 27.6 % (39.0-53.0); HGB 9.1 gm/dL (13.0-17.5); Lymphocytes % (A) 24 %; MCH 30.2 pg (25.0-35.0); MCV 91.6 fL (80.0-100.0); Mean Platelet Volume 8.1; Monocytes # (A) 0.3 k/uL (0-1.0); Monocytes % (A) 7 %; Neutrophils # (A) 2.6 k/uL (1.3-7.7); Neutrophils % (A) 66 %; Platelet Count 358 k/uL (150-450); RBC 3.02 m/uL (4.30-5.90); RDW 14.5 % (11.5-15.5)
[2021-07-09 15:06] LABS: Partial Thromboplastin Time 22.2 sec (22.0-30.0); Prothrombin Time 10.8 sec (9.0-12.0)
[2021-07-09 15:07] LABS: Albumin 3.5 g/dL (3.5-5.0); Calcium 9.3 mg/dL (8.4-10.2); Magnesium 1.9 mg/dL (1.6-2.3); Potassium 5.2 mmol/L (3.5-5.1); Total Bilirubin 0.2 mg/dL (0.2-1.3); Total Protein 6.9 g/dL (6.3-8.2)
--- NOTE | 2021-07-09 16:09 | XR ---
EXAMINATION TYPE: XR chest 2V DATE OF EXAM: 07/09/2021 COMPARISON: Chest x-ray April 03, 2011. HISTORY: Weakness and syncope. TECHNIQUE: Frontal and lateral views of the chest are obtained. FINDINGS: Slightly elevated left hemidiaphragm is redemonstrated. There is no suspicious new focal ai r space opacity, pleural effusion, or pneumothorax seen. The cardiac silhouette size is slightly mor e prominent but within normal limits. The osseous structures are intact. Overlying EKG leads curren tly. IMPRESSION: No acute cardiopulmonary process.
[2021-07-09 17:02] LABS: Appearance,Urine Clear (Clear); Bilirubin,Urine Negative (Negative); Blood,Urine Negative (Negative); Color,Urine Yellow; Glucose,Urine (UA) Negative (Negative); Ketones,Urine Negative (Negative); Leukocyte Esterase,Urine Negative (Negative); Nitrite,Urine Negative (Negative); Protein,Urine Negative (Negative); Specific Gravity,Urine 1.012 (1.001-1.035); Urobilinogen,Urine <2.0 mg/dL (<2.0)
[2021-07-09] MEDS ORDERED: SODIUM CHLORIDE 0.9% 1,000 ML IV ONE (18:28)
[2021-07-10] MEDS: TAMSULOSIN 0.4 MG CAP.ER.24H PO SCH (09:53)
[2021-07-10] MEDS: FOLIC ACID 1 MG TAB PO SCH (09:53)
[2021-07-10] MEDS: ENOXAPARIN 30 MG/0.3 ML SYRINGE SQ SCH (09:54)
--- NOTE | 2021-07-10 12:21 | P.HPIM ---
History of Present Illness H&P Date: 07/10/21 Chief Complaint: Decreased responsiveness History of presenting complaint: This is a 71-year-old patient , resident of [facility], Followed by Dr. Hansen. Patient is aphasic. But able to follow commands. Chronic stable medical conditions include prior stroke, COPD, essential hypertension, BPH, CK D. Patient is Dr. Solano who is the POA is at the bedside. Patient brought in from the [facility] for decreased responsiveness for about 30 seconds. He has not been eating well. Does not like the pured diet that he has been given. By the EMS patient blood pressure was low when they arrived there. Denies any cough or shortness of breath. No pain. Otherwise appears rather comfortable. Review of systems difficult to obtain this patient's aphasic Past medical history to include: COPD, stroke, hypertension, history of alcohol abuse, prostate cancer, some left-sided weakness, dysphagia and dysarthria from stroke Social history: Previous smoker. Currently at resident of [facility]. non-ambulatory Family history: Patient cannot tell Physical examination: VITAL SIGNS: 97.5, 57, 16, 87/69, 99% room air GENERAL: BMI 18.7 reclining in bed, tired. EYES: Pupils equal. Conjunctiva pale. HEENT: External appearance of nose and ears normal, oral cavity grossly dry mucous membrane, coated tongue NECK: JVD not raised; masses not palpable. HEART: First and second heart sounds are normal; no edema. LUNGS: Respiratory rate normal; decreased breath sounds. ABDOMEN: Soft, nontender, liver spleen not palpable, no masses palpable. PSYCH: Unable to assess because of aphasial NEURO: Follows commands. Does not speak. Make some sounds. INVESTIGATIONS, reviewed in the clinical context: White count 4 hemoglobin 9.1 platelets 358 potassium 5.2 BUN 18 creatinine 2.16 UA negative EKG tracing personally reviewed by me-normal sinus rhythm Chest x-ray film personally reviewed by me-nothing acute Lotrisone [mild hydronephrosis. Bilateral simple renal cortical cyst. Assessment and plan: -Episode of decreased responsiveness likely vasovagal from hypotension from decreased oral intake. Patient does not like pured diet and has not been eating. Patient has no focalizing signs. No obvious evidence of seizure. Had no postoperative sodium confusion. IV fluids. -Hypotension from decreased oral intake IV fluids -Normocytic anemia from chronic disease -Chronic aphasia from prior stroke -COPD in a previous smoker Albuterol as needed -Essential hypertension Norvasc 5 mg daily. Currently on hold because of low blood pressure -BPH Flomax 0.4 mg daily -Hyperkalemia from CK D Follow potassium -CKD, stage III likely nephrosclerosis Follow renal function -Chronic medical debility from stroke Patient nonambulatory -Xiomara [daughter/D POA Patiently given IV fluids. Hold off amlodipine for now. Follow blood pressure. Patient will be given chopped diet. Repeat labs. Lovenox for DVT prophylaxis. Past Medical History Past Medical History: Cancer, COPD, CVA/TIA, Hypertension Additional Past Medical History / Comment(s): anemia, UTI, metabolic encephalopathy, ETOH abuse, Acute Kidney failure, prostate CA, sepsis, seizure from ETOH withdrawal, left side weakness and dysphagia from stroke, History of Any Multi-Drug Resistant Organisms: None Reported Past Surgical History: Prostate Surgery Additional Past Surgical History / Comment(s): prostate biopsy,vocal cord polyp removal, HD catheter with removal Past Anesthesia/Blood Transfusion Reactions: Unable to Obtain Past Psychological History: Depression Smoking Status: Current some day smoker Past Alcohol Use History: Abuse Past Drug Use History: Marijuana - Past Family History Father History Unknown: Yes Medications and Allergies Home Medications Medication Instructions Recorded Confirmed Type Folic Acid 1 mg PO DAILY 06/11/21 07/09/21 History Tamsulosin [Flomax] 0.4 mg PO DAILY 06/11/21 07/09/21 History amLODIPine [Norvasc] 5 mg PO DAILY 06/11/21 07/09/21 History Health Shake 1 can PO DAILY@1700 07/09/21 07/09/21 History MORPHINE ORAL GUALBERTO CONC 20mg/mL 5 mg PO Q4HR PRN 07/09/21 07/09/21 History [Roxanol Oral Soln Conc 20MG/ML] Allergies Allergy/AdvReac Type Severity Reaction Status Date / Time No Known Allergies Allergy Verified 07/09/21 17:46 Physical Exam Vitals: Vital Signs Temp Pulse Pulse Resp BP BP Pulse Ox 07/10/21 08:41 99 07/10/21 07:24 99.4 F 64 16 115/64 100 07/10/21 02:00 98.5 F 56 L 19 111/64 100 07/09/21 21:15 97.6 F 65 19 123/76 98 07/09/21 21:04 65 18 07/09/21 18:53 56 L 18 138/92 100 07/09/21 17:56 53 L 18 133/78 98 07/09/21 15:37 53 L 18 116/70 98 07/09/21 14:12 97.5 F L 57 L 16 97/69 99 Intake and Output 07/09/21 07/10/21 07/10/21 22:59 06:59 14:59 Other: Voiding Method Urinal # Voids 1 Weight 58.967 kg Results CBC & Chem 7: 07/09/21 14:46 07/09/21 14:46 Labs: Abnormal Lab Results - Last 24 Hours (Table) 07/09/21 07/09/21 Range/Units 14:46 14:46 RBC 3.02 L (4.30-5.90) m/uL Hgb 9.1 L (13.0-17.5) gm/dL Hct 27.6 L (39.0-53.0) % Sodium 135 L (137-145) mmol/L Potassium 5.2 H (3.5-5.1) mmol/L Creatinine 2.16 H (0.66-1.25) mg/dL Glucose 115 H (74-99) mg/dL Thrombosis Risk Factor Assmnt - Choose All That Apply Other Risk Factors: Yes Each Risk Factor Represents 2 Points: Age 61-74 years, Malignancy Thrombosis Risk Factor Assessment Total Risk Factor Score: 4 Thrombosis Risk Factor Assessment Level: Moderate Risk
[2021-07-10 13:10] LABS: African American GFR (CKD) 42 (>60 ml/min/1.73 sqM); Anion Gap 9 mmol/L; Blood Urea Nitrogen 19 mg/dL (9-20); Calcium 9.3 mg/dL (8.4-10.2); Carbon Dioxide 21 mmol/L (22-30); Chloride 105 mmol/L (98-107); Glucose 81 mg/dL (74-99); Non-African American GFR(CKD) 37 (>60 ml/min/1.73 sqM); Sodium 135 mmol/L (137-145)
[2021-07-10 13:12] LABS: Potassium 5.6 mmol/L (3.5-5.1)
[2021-07-10 14:00] VITALS: BMI 18.6
[2021-07-10] MEDS: SODIUM CHLORIDE 0.9% 1,000 ML IV SCH (16:08)
[2021-07-11] MEDS: SODIUM CHLORIDE 0.9% 1,000 ML IV SCH ×3 (05:34→14:32)
[2021-07-11 06:30] LABS: African American GFR (CKD) 39 (>60 ml/min/1.73 sqM); Anion Gap 5 mmol/L; Blood Urea Nitrogen 22 mg/dL (9-20); Carbon Dioxide 25 mmol/L (22-30); Chloride 107 mmol/L (98-107); Glucose 70 mg/dL (74-99); Non-African American GFR(CKD) 34 (>60 ml/min/1.73 sqM); Potassium 5.4 mmol/L (3.5-5.1); Sodium 137 mmol/L (137-145)
[2021-07-11 07:15] LABS: Glucose,Whole Blood 77 mg/dL (75-99)
[2021-07-11] MEDS: TAMSULOSIN 0.4 MG CAP.ER.24H PO SCH (07:28)
[2021-07-11] MEDS: ENOXAPARIN 30 MG/0.3 ML SYRINGE SQ SCH (07:28)
[2021-07-11] MEDS: FOLIC ACID 1 MG TAB PO SCH (07:28)
--- NOTE | 2021-07-11 17:28 | P.PN ---
Progress Note - Text Progress Note Date: 07/11/21 Chief Complaint: Decreased responsiveness History of presenting complaint: This is a 71-year-old patient , resident of [facility], Followed by Dr. Hansen. Patient is aphasic. But able to follow commands. Chronic stable medical conditions include prior stroke, COPD, essential hypertension, BPH, CK D. Patient is Dr. Solano who is the POA is at the bedside. Patient brought in from the [facility] for decreased responsiveness for about 30 seconds. He has not been eating well. Does not like the pured diet that he has been given. By the EMS patient blood pressure was low when they arrived there. Denies any cough or shortness of breath. No pain. Otherwise appears rather comfortable. [July 10] Had a meeting with patient's daughter HILARY Solano -I informed her that the patient's MRI from this morning was showing a stroke and also cardiac enzymes were showing heart attack. Late in the evening I realized that the above results belong to another patient and I came back to the floor and med with the Patient's other daughter and spoke to Xiomara on speaker phone and corrected my misinformation from earlier. Earlier in the day Xiomara had decided to make the patient DO NOT RESUSCITATE. Later patient's was made back into full code. It was also established at the [facility] patient is under [facility] hospice. Xiomara did mention that there was no indication of patient being no code and nobody talked with them about the same. Speech therapist did state that patient very recently had a full swallow evaluation and completely failed the same. Had suggested a PEG tube. Xiomara does not want a PEG tube. She has been feeding the patient since then.. Wants to continue feeding the patient. I did explain that this will be be pleasure feeding. Review of systems difficult to obtain this patient's aphasic July 11: Spoke to steven Shankar earlier today. She had spoken to patient's daughter Xiomara and aborted decreased that repeat swallow study will not change outcome. As pleasure feeding is to continue. Patient other daughter the bedside. I spoke to her. At this point family has decided again for no feeding tube. Also patient is to remain in full code. Also decided patient when returns to the [facility] and not be in hospice anymore. I communicated this with the social media project manager Dharmesh. We'll see how patient's feeding goes today. Patient is able to swallow his food. There was one episode of vomiting reported last night. Otherwise patient appears rather cheerful smiling. Does not appear to be in any pain.. Review of systems cannot be obtained as patient is unable to talk Active Medications Enoxaparin Sodium (Enoxaparin 30 Mg/0.3 Ml Syringe) 30 mg SQ DAILY ON LICENSE OF [facility] Last Admin: 07/11/21 07:28 Dose: 30 mg Documented by: Folic Acid (Folic Acid 1 Mg Tab) 1 mg PO DAILY ON LICENSE OF [facility] Last Admin: 07/11/21 07:28 Dose: 1 mg Documented by: Sodium Chloride (Saline 0.9%) 1,000 mls @ 130 mls/hr IV .[id number] ON LICENSE OF [facility] Last Admin: 07/11/21 14:32 Dose: Not Given Documented by: Tamsulosin HCl (Tamsulosin 0.4 Mg Cap.Er.24h) 0.4 mg PO DAILY ON LICENSE OF [facility] Last Admin: 07/11/21 07:28 Dose: 0.4 mg Documented by: Past medical history to include: COPD, stroke, hypertension, history of alcohol abuse, prostate cancer, some le ft-sided weakness, dysphagia and dysarthria from stroke Social history: Previous smoker. Currently at [facility]. non-ambulatory Family history: Patient cannot tell Physical examination: VITAL SIGNS: 97.8, 65, 18, 131/76, 100% room air GENERAL: reclining in bed, awake EYES: Pupils equal. Conjunctiva pale. NECK: JVD not raised; masses not palpable. HEART: First and second heart sounds are normal; no edema. LUNGS: Respiratory rate normal; decreased breath sounds. ABDOMEN: Soft, nontender, liver spleen not palpable, no masses palpable. PSYCH: Unable to assess because of aphasia NEURO: Follows commands. Does not speak. Make some sounds. INVESTIGATIONS, reviewed in the clinical context: July 11: Potassium 5.4 BUN 22 creatinine 1.97 White count 4 hemoglobin 9.1 platelets 358 potassium 5.2 BUN 18 creatinine 2.16 UA negative EKG tracing personally reviewed by me-normal sinus rhythm Chest x-ray film personally reviewed by me-nothing acute Lotrisone [mild hydronephrosis. Bilateral simple renal cortical cyst. Assessment and plan: -Likely vasovagal episode from hypotension, from decreased oral intake IV fluids. -Hypotension from decreased oral intake, better IV fluids, decrease -Normocytic anemia from chronic disease Follow H&H -Chronic aphasia from prior stroke -Chronic severe dysphagia. Patient is completely failed swallow evaluation. Family decided to continue pleasure feeding. Understanding the risks of aspiration. -COPD in a previous smoker Albuterol as needed -Essential hypertension Follow blood pressure -BPH Flomax 0.4 mg daily -Hyperkalemia from CK D Follow potassium. Renal diet. -CKD, stage III likely nephrosclerosis Follow renal function -Chronic medical debility from stroke Patient nonambulatory -Xiomara [daughter/D POA -Full code. Not for feeding tube per family. Patient to remain full code. Not for feeding tube. Pleasure feeding. Renal diet. Cut back IV fluids. Plan to DC to ECF tomorrow. No hospice. Repeat labs. Total time spent today 45 minutes with over 25 minutes of discussion
[2021-07-12] MEDS: SODIUM CHLORIDE 0.9% 1,000 ML IV SCH (03:31)
[2021-07-12 08:22] VITALS: BP 148/74; PULSE 68; RESP 18; TEMP 97.4
[2021-07-12] MEDS: ENOXAPARIN 30 MG/0.3 ML SYRINGE SQ SCH (08:33)
[2021-07-12] MEDS: FOLIC ACID 1 MG TAB PO SCH (08:33)
[2021-07-12] MEDS: TAMSULOSIN 0.4 MG CAP.ER.24H PO SCH (08:33)
--- NOTE | 2021-07-12 14:11 | P.DS ---
Providers Date of admission: 07/09/21 18:28 Expected date of discharge: 07/12/21 Attending physician: Elia Ng Primary care physician: Edgar Hansen [facility] Course: Chief Complaint: Decreased responsiveness History of presenting complaint: This is a 71-year-old patient , resident of [facility], Followed by Dr. Hansen. Patient is aphasic. But able to follow commands. Chronic stable medical conditions include prior stroke, COPD, essential hypertension, BPH, CK D. Patient is Dr. Solano who is the POA is at the bedside. Patient brought in from the [facility] for decreased responsiveness for about 30 seconds. He has not been eating well. Does not like the pured diet that he has been given. By the EMS patient blood pressure was low when they arrived there. Denies any cough or shortness of breath. No pain. Otherwise appears rather comfortable. [July 10] Had a meeting with patient's daughter HILARY Solano -I informed her that the patient's MRI from this morning was showing a stroke a nd also cardiac enzymes were showing heart attack. Late in the evening I realized that the above results belong to another patient and I came back to the floor and med with the Patient's other daughter and spoke to Xiomara on speaker phone and corrected my misinformation from earlier. Earlier in the day Xiomara had decided to make the patient DO NOT RESUSCITATE. Later patient's was made back into full code. It was also established at the [facility] patient is under [facility] hospice. Xiomara did mention that there was no indication of patient being no code and nobody talked with them about the same. Speech therapist did state that patient very recently had a full swallow evaluation and completely failed the same. Had suggested a PEG tube. Xiomara does not want a PEG tube. She has been feeding the patient since then.. Wants to continue feeding the patient. I did explain that this will be be pleasure feeding. Review of systems difficult to obtain this patient's aphasic July 11: Spoke to steven Shankar earlier today. She had spoken to patient's daughter Xiomara and aborted decreased that repeat swallow study will not change outcome. As pleasure feeding is to continue. Patient other daughter the bedside. I spoke to her. At this point family has decided again for no feeding tube. Also patient is to remain in full code. Also decided patient when returns to the [facility] and not be in hospice anymore. I communicated this with the social media content specialist Dharmesh. We'll see how patient's feeding goes today. Patient is able to swallow his food. There was one episode of vomiting reported last night. Otherwise patient appears rather cheerful smiling. Does not appear to be in any pain.. July 12: Tolerating a chopped diet. resume amlodipine at 2.5 mg daily. Will DC back to [facility]. Past medical history to include: COPD, stroke, hypertension, history of alcohol abuse, prostate cancer, some left-sided weakness, dysphagia and dysarthria from stroke Social history: Previous smoker. Currently at [facility]. non-ambulatory Family history: Patient cannot tell Physical examination: VITAL SIGNS: 97.4, 68, 18, 148-74, 100% room air GENERAL: reclining in bed, awake, comfortable EYES: Pupils equal. Conjunctiva pale. NECK: JVD not raised; masses not palpable. HEART: First and second heart sounds are normal; no edema. LUNGS: Respiratory rate normal; decreased breath sounds. ABDOMEN: Soft, nontender, liver spleen not palpable, no masses palpable. PSYCH: Unable to assess because of aphasia NEURO: Follows commands. Does not speak. Make some sounds. INVESTIGATIONS, reviewed in the clinical context: July 11: Potassium 5.4 BUN 22 creatinine 1.97 White count 4 hemoglobin 9.1 platelets 358 potassium 5.2 BUN 18 creatinine 2.16 UA negative EKG tracing personally reviewed by me-normal sinus rhythm Chest x-ray film personally reviewed by me-nothing acute Lotrisone [mild hydronephrosis. Bilateral simple renal cortical cyst. Assessment and plan: -Likely vasovagal episode from hypotension, from decreased oral intake IV fluids. -Hypotension from decreased oral intake, better IV fluids, decrease -Normocytic anemia from chronic disease Follow H&H -Chronic aphasia from prior stroke -Chronic severe dysphagia. completely failed swallow evaluation. Family decided to continue pleasure feeding. Understanding the risks of aspiration. Chopped diet -COPD in a previous smoker Albuterol as needed -Essential hypertension Amlodipine 2.5 mg daily -BPH Flomax 0.4 mg daily -Hyperkalemia from CK D Renal diet. -CKD, stage III likely nephrosclerosis Follow renal function -Chronic medical debility from stroke Patient nonambulatory -Xiomara [daughter/D POA -Full code. Not for feeding tube per family. Disposition: [facility] Labs: CBC, BMP 3 days Plan - Discharge Summary Discharge Rx Participant: No New Discharge Prescriptions: No Action Folic Acid 1 mg PO DAILY Tamsulosin [Flomax] 0.4 mg PO DAILY amLODIPine [Norvasc] 5 mg PO DAILY MORPHINE ORAL GUALBERTO CONC 20mg/mL [Roxanol Oral Soln Conc 20MG/ML] 5 mg PO Q4HR PRN PRN Reason: Pain Health Shake 1 can PO DAILY@1700 Discharge Medication List Folic Acid 1 mg PO DAILY 06/11/21 [History] Tamsulosin [Flomax] 0.4 mg PO DAILY 06/11/21 [History] amLODIPine [Norvasc] 5 mg PO DAILY 06/11/21 [History] Health Shake 1 can PO DAILY@1700 07/09/21 [History] MORPHINE ORAL GUALBERTO CONC 20mg/mL [Roxanol Oral Soln Conc 20MG/ML] 5 mg PO Q4HR PRN 07/09/21 [History] Follow up Appointment(s)/Referral(s): Edgar Hansen DO [Primary Care Provider] - 1-2 days Activity/Diet/Wound Care/Special Instructions: PH medi Diet: Low potassium renal diet. Dysphagia 3: chopped diet. Thin liquids. Extra sauce/gravy when possible. Aspiration precautions - 1:1 feeder
== END 2021-07-12 14:45 ==
LOC: EC 14:08 → 4SSUR 18:28
PROVIDERS: ADMIT Hospitalist; ATTEND Hospitalist
DX: I95.9 Hypotension, unspecified (principal); R40.4 Transient alteration of awareness; Z20.822 Contact with and (suspected) exposure to COVID-19; Z66 Do not resuscitate; R11.10 Vomiting, unspecified; D63.8 Anemia in other chronic diseases classified elsewhere; I69.320 Aphasia following cerebral infarction; I69.391 Dysphagia following cerebral infarction; J44.9 Chronic obstructive pulmonary disease, unspecified; Z87.891 Personal history of nicotine dependence; N40.0 Benign prostatic hyperplasia without lower urinary tract symptoms; N18.30 Chronic kidney disease, stage 3 unspecified; E87.5 Hyperkalemia; F32.9 Major depressive disorder, single episode, unspecified; I12.9 Hypertensive chronic kidney disease with stage 1 through stage 4 chronic kidney disease, or unspecified chronic kidney disease; Z79.899 Other long term (current) drug therapy; Z85.46 Personal history of malignant neoplasm of prostate
CPT/HCPCS: 96361; 96372 ×3; 96360; 99285; 36415; 94760 ×2; 93005; 97162; 97166; 92610; 80053; 80048 ×2; 83605; 83735; 84484; 85025; 85610; 85730; 81003; 87635; 71046; G0378 ×4; J1650 ×3

== ENCOUNTER 2022-05-14 09:11 | Day surgery (SDC) | payer MEDICARE, OTHER ==
[~2022-05-14 09:11] MED LIST: LACTATED RINGERS 1,000 ML IV SCH; LIDOCAINE 1% (10MG/ML) FOR IV START INTRADERMA PRN
[2022-05-14 10:04] VITALS: RESP 16; TEMP 98.6
[2022-05-14] MEDS ORDERED: PHENYLEPHRINE-0.9% NACL SYG 1,000 MCG/10 ML SYRINGE ONE (10:45)
[2022-05-14] MEDS ORDERED: PROPOFOL 10 MG/ML 20 ML VIAL IV ONE (10:45)
--- NOTE | 2022-05-14 10:47 | P.GSHP ---
History of Present Illness H&P Date: 05/14/22 Chief Complaint: Malnutrition Is a 71-year-old male with malnutrition. Patient has dysphagia. He's had poor oral intake. Presents today for PEG tube placement Past Medical History Past Medical History: Cancer, COPD, CVA/TIA, Hypertension Additional Past Medical History / Comment(s): anemia, UTI, metabolic encephalopathy, ETOH abuse, Acute Kidney failure, prostate CA, sepsis, seizure from ETOH withdrawal, left side weakness and dysphagia from stroke, History of Any Multi-Drug Resistant Organisms: None Reported Past Surgical History: Prostate Surgery Additional Past Surgical History / Comment(s): prostate biopsy,vocal cord polyp removal, HD catheter with removal Past Anesthesia/Blood Transfusion Reactions: Unable to Obtain Past Psychological History: Depression Smoking Status: Former smoker Past Alcohol Use History: Unable to Obtain, Abuse Past Drug Use History: Unable to Obtain, Marijuana - Past Family History Father History Unknown: Yes Medications and Allergies Home Medications Medication Instructions Recorded Confirmed Type Folic Acid 1 mg PO DAILY 06/11/21 05/14/22 History Tamsulosin [Flomax] 0.4 mg PO DAILY 06/11/21 05/14/22 History amLODIPine [Norvasc] 2.5 mg PO DAILY #1 tablet 07/12/21 05/14/22 Rx Mirtazapine [Remeron] 15 mg PO HS 05/13/22 05/14/22 History Allergies Allergy/AdvReac Type Severity Reaction Status Date / Time No Known Allergies Allergy Verified 05/14/22 10:00 Surgical - Exam Vital Signs Temp Pulse Resp BP Pulse Ox 98.6 F 67 16 98/73 98 05/14/22 10:03 05/14/22 10:03 05/14/22 10:03 05/14/22 10:03 05/14/22 10:03 - General well developed, well nourished, no distress - Eyes PERRL - ENT normal pinna - Neck no masses - Respiratory normal expansion - Cardiovascular Rhythm: regular - Abdomen Abdomen: soft, non tender Assessment and Plan Assessment: Malnutrition. We'll perform PEG tube placement
--- NOTE | 2022-05-14 11:08 | P.OP ---
Date of Procedure: 05/14/22 Preoperative Diagnosis: Malnutrition Postoperative Diagnosis: Malnutrition Procedure(s) Performed: EGD with PEG tube placement Anesthesia: MAC Surgeon: Shekhar Alvarez Pathology: none sent Condition: stable Disposition: PACU Description of Procedure: The patient received IV sedation. Next the gastroscope placed oropharynx passed in the esophagus and stomach and into the pylorus. There is no evidence of any outlet obstruction. Stomach was insufflated with air. The light reflux seen the anterior abdominal wall. The abdomen was prepped and draped usual fashion. The skin was incised. And the needles placed and stomach under direct visualization. The needle was snared. And the wires placed through the needle and the wire was snared and brought the oropharynx. The PEG tube was placed over top the wire brought down to the stomach. The PEG tube was secured. At the 3 cm jamal. The one-piece bolster was used. Patient tolerated procedure well.
[2022-05-14] MEDS ORDERED: LACTATED RINGERS 1,000 ML IV ONE (11:16)
[2022-05-14 11:59] VITALS: BP 113/71; PULSE 50
== END 2022-05-14 12:19 | disposition home or self-care (01) ==
LOC: EEVIPCON 09:11 → ORWHC2ENDO 09:11
PROVIDERS: ATTEND Surgery
DX: E46 Unspecified protein-calorie malnutrition (principal); J44.9 Chronic obstructive pulmonary disease, unspecified; I10 Essential (primary) hypertension; Z86.73 Personal history of transient ischemic attack (TIA), and cerebral infarction without residual deficits; D64.9 Anemia, unspecified; Z87.440 Personal history of urinary (tract) infections; Z85.46 Personal history of malignant neoplasm of prostate; G93.41 Metabolic encephalopathy; Z98.890 Other specified postprocedural states; F32.A Depression, unspecified; F10.10 Alcohol abuse, uncomplicated; R47.01 Aphasia; I25.2 Old myocardial infarction; F17.200 Nicotine dependence, unspecified, uncomplicated; N28.9 Disorder of kidney and ureter, unspecified; Z79.899 Other long term (current) drug therapy
CPT/HCPCS: 43246; J2370; J2704; B4087